=== PATIENT | female | born 1980 | race Caucasian/White ===

== ENCOUNTER 2016-11-24 20:28 | Emergency (ER) | payer BC ==
[2016-11-24 20:53] VITALS: BP 108/65
--- NOTE | 2016-11-24 21:17 | UC ---
Lower Extremity/Ankle HPI - HPI Summary HPI Summary: patient fell off a stair landing on the right ankle and twisting it underneath her body weight. pain, non ambulatory and swelling on the lateral side - History of Current Complaint Chief Complaint: UCLowerExtremity Stated Complaint: RIGHT ANKLE INJURY Time Seen by Provider: 11/24/16 21:15 Hx Obtained From: Patient Hx Last Menstrual Period: IUD ?: No Onset/Duration: Sudden Onset, Lasting Hours Severity Initially: Severe Severity Currently: Moderate Aggravating Factor(s): Standing, Ambulation Alleviating Factor(s): Rest Able to Bear Weight: No - Allergies/Home Medications Allergies/Adverse Reactions: Allergies Allergy/AdvReac Type Severity Reaction Status Date / Time Carbamazepine [From Tegretol] Allergy Intermediate Hives Verified 11/24/16 20:53 Erythromycin Allergy Intermediate Vomiting Verified 11/24/16 20:53 Home Medications: Home Medications Ibuprofen TAB* [Advil TAB*] 400 mg PO Q6H PRN 11/24/16 [History Confirmed ] PMH/Surg Hx/FS Hx/Imm Hx Previously Healthy: Yes - Surgical History Surgical History: None - Family History Known Family History: Positive: Diabetes Negative: Hypertension - Social History Alcohol Use: Rare Substance Use Type: None Smoking Status (MU): Former Smoker When Did the Patient Quit Smoking/Using Tobacco: 2002 - Immunization History Most Recent Influenza Vaccination: APR 2014 Review of Systems Skin: Negative Eyes: Negative ENT: Negative Respiratory: Negative Cardiovascular: Negative Gastrointestinal: Negative Genitourinary: Negative Motor: Negative Neurovascular: Negative Musculoskeletal: Arthralgia, Decreased ROM, Edema, Myalgia Neurological: Negative Psychological: Negative All Other Systems Reviewed And Are Negative: Yes Physical Exam Triage Information Reviewed: Yes Appearance: Well-Appearing, Well-Nourished, Pain Distress Vital Signs: Initial Vital Signs Temp 98 F 11/24/16 20:48 Pulse 80 11/24/16 20:48 Resp 20 11/24/16 20:48 BP 108/65 11/24/16 20:48 Pulse Ox 100 11/24/16 20:48 Vital Signs Reviewed: Yes Eye Exam: Normal Eyes: Positive: Conjunctiva Clear ENT: Positive: Normal ENT inspection, Hearing grossly normal, Pharynx normal, TMs normal Neck exam: Normal Respiratory Exam: Normal Cardiovascular Exam: Normal Abdominal Exam: Normal Bowel Sounds: Positive: Present Musculoskeletal: Positive: Strength Limited @ - non weight bearing, ROM Limited @ - in all idrections, Edema @ - lateral right ankle Neurological Exam: Normal Neurological: Positive: Alert, Muscle Tone Normal Psychological Exam: Normal Skin Exam: Normal Lower Extremity Course/Dx - Course Course Of Treatment: hx obtained, exam performed ,meds reviewed, xray obtained, right fractured fibula, placed in cam boot and crutches. referred to Dr bruce. - Differential Dx/Diagnosis Differential Diagnosis/HQI/PQRI: Contusion, Dislocation, Fracture (Closed), Sprain, Strain Provider Diagnoses: right fibular fracture Discharge - Discharge Plan Condition: Stable Disposition: HOME Patient Education Materials: Ankle Fracture (ED) Referrals: Jesusita Lemons NP [Primary Care Provider] - Morgan Bruce MD [Medical Doctor] - Additional Instructions: 1. No weight bearing 2. Wear the cam boot 3. Ibuprofen and tylenol for pain 4. Follow up with Dr Bruce on saturday
--- NOTE | 2016-11-24 21:41 | RAD ---
INDICATION: Ankle swelling after a fall COMPARISON: None. TECHNIQUE: 3 views of the right ankle were obtained. FINDINGS: There is a comminuted but only slightly displaced fracture involving the distal right fibula. The remaining visualized bones appear to be intact. There is questionable widening of the medial aspect of the ankle mortise, but this may simply be positional. IMPRESSION: COMMINUTED BUT MINIMALLY DISPLACED FRACTURE INVOLVING THE DISTAL RIGHT FIBULA. THERE IS QUESTIONABLE WIDENING OF THE MEDIAL ANKLE MORTISE BUT THIS MAY SIMPLY BE DUE TO POSITIONING.
== END 2016-11-24 21:50 | disposition home or self-care (01) ==
LOC: UCCORT 20:28
DX: S82.891A Other fracture of right lower leg, initial encounter for closed fracture (principal); W10.9XXA Fall (on) (from) unspecified stairs and steps, initial encounter; Y92.9 Unspecified place or not applicable; Z88.1 Allergy status to other antibiotic agents; Z88.8 Allergy status to other drugs, medicaments and biological substances; Z87.891 Personal history of nicotine dependence
CPT/HCPCS: 99212; G0463

== ENCOUNTER 2018-03-18 15:13 | Emergency (ER) | payer BC ==
[2018-03-18 15:45] VITALS: BP 122/70
--- NOTE | 2018-03-18 16:21 | UC ---
Skin Complaint HPI - HPI Summary HPI Summary: 37-year-old woman comes in with a chief complaint of rash. She's had a rash on her upper anterior thigh bilaterally underwear her pants pockets are for several weeks. Of the left side initially was worse but it has tried and healed. The right side is now more irritated and is draining. It is hot to touch. No known trauma. No fevers feels well otherwise. - History of Current Complaint Chief Complaint: UCSkin Time Seen by Provider: 03/18/18 16:00 Stated Complaint: RIGHT LEG CONCERN Hx Last Menstrual Period: Depo Pain Intensity: 4 - Allergy/Home Medications Allergies/Adverse Reactions: Allergies Allergy/AdvReac Type Severity Reaction Status Date / Time carbamazepine Allergy Hives Verified 03/18/18 16:00 erythromycin base Allergy Vomiting Verified 03/18/18 16:00 Home Medications: Home Medications medroxyPROGESTERone ACETATE* [DEPO-Provera] 150 mg IM ONCE 03/18/18 [History Confirmed 03/18/18] Review of Systems All Other Systems Reviewed And Are Negative: Yes Constitutional: Positive: Negative Skin: Positive: Rash Eyes: Positive: Negative ENT: Positive: Negative Respiratory: Positive: Negative Gastrointestinal: Positive: Negative Motor: Positive: Negative Neurovascular: Positive: Negative Musculoskeletal: Positive: Negative Neurological: Positive: Negative Psychological: Positive: Negative Is Patient Immunocompromised?: No PMH/Surg Hx/FS Hx/Imm Hx Previously Healthy: Yes - Surgical History Surgical History: None - Family History Known Family History: Positive: Diabetes Negative: Hypertension - Social History Alcohol Use: Rare Substance Use Type: None Smoking Status (MU): Former Smoker When Did the Patient Quit Smoking/Using Tobacco: 2002 - Immunization History Most Recent Influenza Vaccination: APR 2014 Physical Exam Triage Information Reviewed: Yes Appearance: Well-Appearing, No Pain Distress, Well-Nourished Vital Signs: Initial Vital Signs Temp 99 F 03/18/18 15:42 Pulse 97 03/18/18 15:42 Resp 16 03/18/18 15:42 BP 122/70 03/18/18 15:42 Pulse Ox 100 03/18/18 15:42 Eyes: Positive: Conjunctiva Clear Neck: Positive: Supple Respiratory: Positive: No respiratory distress Musculoskeletal Exam: Normal Musculoskeletal: Positive: Strength Intact, ROM Intact Neurological Exam: Normal Neurological: Positive: Alert, Muscle Tone Normal Psychological Exam: Normal Psychological: Positive: Age Appropriate Behavior Skin: Positive: Other - On the upper thigh anterior to the head of the femur bilaterally patient has a flat erythematous rash approximately 6 cm in diameter. The left is dry and nontender to palpation without any drainage. On the right there is some serous drainage it's warm to touch. Course/Dx - Course Course Of Treatment: It appears that the area of the rash is most likely due to irritation from items at the patient has in her pockets. On the right upper thigh and appears there is in addition some cellulitis occurring. We discussed not having any pain in her pockets. The plan is Keflex and mupirocin and also keeping the area covered and protected. Her recommended letting the area dry when possible. Plan is to treat as described above and return to get recheck if not improving or worse. - Diagnoses Provider Diagnoses: RASH Discharge - Sign-Out/Discharge Documenting (check all that apply): Patient Departure All imaging exams completed and their final reports reviewed: No Studies - Discharge Plan Condition: Stable Disposition: HOME Prescriptions: Cephalexin CAP* [Keflex CAP*] 500 mg PO QID #40 cap Mupirocin 1 applic TOPICAL BID #22 gm Patient Education Materials: Acute Rash (ED), Cellulitis (ED) Referrals: Jesusita Lemons NP [Primary Care Provider] - Additional Instructions: FOLLOW UP WITH YOUR DOCTOR IF NOT COMPLETELY IMPROVED. GET RECHECKED FOR ANY WORSENING OF YOUR CONDITION; SPREAD OF INFECTION, FEVER, YOU FEEL ILL OR QUESTIONS OR CONCERNS. - Billing Disposition and Condition Condition: STABLE Disposition: Home
[2018-03-18] MEDS ORDERED: Mupirocin 2% OINT* TUBE TOPICAL ONE (16:23)
== END 2018-03-18 16:36 | disposition home or self-care (01) ==
LOC: UCCORT 15:13
DX: R21 Rash and other nonspecific skin eruption (principal); Z88.1 Allergy status to other antibiotic agents; Z88.8 Allergy status to other drugs, medicaments and biological substances; Z87.891 Personal history of nicotine dependence
CPT/HCPCS: 99212; G0463